=== PATIENT | female | born 1960 | race Caucasian/White ===

== ENCOUNTER 2021-01-18 16:00 | Outpatient (RCR) | payer OTHER, SELFPAY | END 2021-04-17 14:08 | disposition home or self-care (01) | LOC: HO.PTCHIC 16:00 | PROVIDERS: PCP Registered Nurse; Visit Provider Physical Medicine & Rehabilitation Sports Medicine | DX: M75.40 Impingement syndrome of unspecified shoulder (principal) | CPT/HCPCS: 97014; 97110; 97140; 97162 ==